=== PATIENT | male | born 1955 | race Caucasian/White ===

== ENCOUNTER 2019-08-09 15:39 | Emergency (ER) | payer OTHER ==
[~2019-08-09] VITALS: Ht 177.8 cm; Wt 79.4 kg
[2019-08-09 16:37] LABS: BASO # 0.1 10*3/uL (0.0-0.1); EOS # 0.4 10*3/uL (0.0-0.4); EOS % 4.8 % (1.0-4.0); HEMATOCRIT 40.5 % (42.0-52.0); LYMPH % 25.7 % (27.0-41.0); MEAN CORPUSCULAR HGB 31.1 pg (27.0-31.0); MEAN CORPUSCULAR HGB CONC 33.8 g/dl (33.0-37.0); MEAN PLATELET VOLUME 9.1 fl (9.6-12.3); MONO # 0.7 10*3/uL (0.1-1.0); MONO % 8.6 % (3.0-9.0); NEUT # 4.7 10*3/uL (2.3-7.9); NEUT % 59.8 % (47.0-73.0); PLATELET COUNT AUTOMATED 207 10*3/uL (130-400); RED CELL DISTRI WIDTH 12.8 % (0-14.5); WHITE BLOOD COUNT 7.9 10*3/uL (4.8-10.8)
[2019-08-09 16:51] LABS: ALBUMIN 3.6 gm/dl (3.1-4.5); ALKALINE PHOSPHATASE 70 U/L (45-117); BUN 19 mg/dl (7-24); CHLORIDE 113 mmol/L (98-107); POTASSIUM 3.8 mmol/L (3.5-5.1); SGOT/AST 22 IU/L (3-35); SGPT/ALT 31 U/L (12-78); SODIUM 142 mmol/L (136-145); TOTAL PROTEIN 6.9 gm/dL (6.4-8.2)
== END 2019-08-09 18:10 | disposition home or self-care (01) ==
LOC: ED 15:39
PROVIDERS: Emergency Medicine
DX: R20.0 Anesthesia of skin (principal)

== ENCOUNTER 2019-11-13 14:13 | Inpatient (IN) | payer MEDICARE ==
[~2019-11-13] VITALS: Ht 177.8 cm; Wt 84.0 kg
[2019-11-13 14:17] VITALS: BP 130/81
[2019-11-13 15:20] LABS: BASO % 0.3 % (0.0-1.0); EOS % 0.2 % (1.0-4.0); HEMATOCRIT 42.2 % (42.0-52.0); LYMPH # 0.6 10*3/uL (1.3-4.4); LYMPH % 4.7 % (27.0-41.0); MEAN CELL VOLUME 93.4 fl (80.0-94.0); MEAN CORPUSCULAR HGB 31.4 pg (27.0-31.0); MEAN CORPUSCULAR HGB CONC 33.6 g/dl (33.0-37.0); MEAN PLATELET VOLUME 8.7 fl (9.6-12.3); MONO # 0.8 10*3/uL (0.1-1.0); NEUT # 11.7 10*3/uL (2.3-7.9); PLATELET COUNT AUTOMATED 165 10*3/uL (130-400); RED BLOOD COUNT 4.52 10*6/uL (4.50-5.90); RED CELL DISTRI WIDTH 12.7 % (0-14.5); WHITE BLOOD COUNT 13.3 10*3/uL (4.8-10.8)
[2019-11-13 15:34] LABS: BUN 18 mg/dl (7-24); CHLORIDE 110 mmol/L (98-107); CREATININE 1.28 mg/dL (0.70-1.30); POTASSIUM 3.6 mmol/L (3.5-5.1); SODIUM 140 mmol/L (136-145)
[2019-11-13 17:35] VITALS: BP 128/82
[2019-11-13] MEDS ORDERED: FLOMAX0.4 MG PO (18:13)
[2019-11-13] MEDS ORDERED: ASPIRIN CHEWABL81 MG PO (18:14)
[2019-11-13] MEDS ORDERED: B12 ACTIVE1000 MCG PO (18:15)
[2019-11-13] MEDS ORDERED: FISH OIL 1,0001 EAC4 PO (18:15)
[2019-11-13] MEDS ORDERED: FINASTERIDE5 M1 PO (18:16)
[2019-11-13] MEDS ORDERED: EFFEXOR XR150 M1 PO (18:17)
[2019-11-13] MEDS ORDERED: CRESTOR10 M1 PO (18:18)
[2019-11-13 20:00] VITALS: BP 153/88
[2019-11-14 00:09] VITALS: BP 123/86
[2019-11-14 06:31] LABS: BASO # 0.1 10*3/uL (0.0-0.1); BASO % 0.4 % (0.0-1.0); EOS % 0.4 % (1.0-4.0); HEMATOCRIT 41.7 % (42.0-52.0); LYMPH # 1.1 10*3/uL (1.3-4.4); MEAN CELL VOLUME 92.9 fl (80.0-94.0); MEAN CORPUSCULAR HGB CONC 33.3 g/dl (33.0-37.0); MEAN PLATELET VOLUME 9.4 fl (9.6-12.3); MONO # 0.9 10*3/uL (0.1-1.0); MONO % 7.8 % (3.0-9.0); NEUT # 9.3 10*3/uL (2.3-7.9); NEUT % 81.1 % (47.0-73.0); PLATELET COUNT AUTOMATED 155 10*3/uL (130-400); RED BLOOD COUNT 4.49 10*6/uL (4.50-5.90); RED CELL DISTRI WIDTH 12.8 % (0-14.5); WHITE BLOOD COUNT 11.4 10*3/uL (4.8-10.8)
[2019-11-14 06:58] LABS: ALBUMIN 3.5 gm/dl (3.1-4.5); BUN 24 mg/dl (7-24); CHLORIDE 112 mmol/L (98-107); POTASSIUM 3.8 mmol/L (3.5-5.1); SGOT/AST 28 IU/L (3-35); SODIUM 142 mmol/L (136-145)
[2019-11-14 07:04] LABS: ALKALINE PHOSPHATASE 54 U/L (45-117); CHOLESTEROL 122 mg/dL (<200); CREATININE 1.25 mg/dL (0.70-1.30); HDL CHOLESTEROL 41 mg/dl (40-60); LDL CHOLESTEROL 67 mg/dL (9-159); SGPT/ALT 39 U/L (12-78); THYROID STIM HORMONE (HS) 0.904 uIU/ml (0.358-4.75); TOTAL PROTEIN 6.9 gm/dL (6.4-8.2); TRIGLYCERIDES 68 mg/dl (<150); VLDL CHOLESTEROL 14 mg/dL (6-40)
[2019-11-14 07:13] LABS: INTERNATIONAL NORM RATIO 1.1 (2.0-3.5)
[2019-11-14 08:00] VITALS: BP 122/77
[2019-11-14 12:00] VITALS: BP 123/80
[2019-11-14 16:00] VITALS: BP 133/92
[2019-11-14 20:00] VITALS: BP 148/92
[2019-11-15] VITALS: BP 138/94
[2019-11-15 08:00] VITALS: BP 132/90
[2019-11-15 12:00] VITALS: BP 120/71
[2019-11-15 16:00] VITALS: BP 138/82
[2019-11-15 20:00] VITALS: BP 135/89
[2019-11-16] VITALS: BP 119/73
[2019-11-16 08:00] VITALS: BP 132/90
[2019-11-16] MEDS ORDERED: VITAMIN D350 MC2 PO (11:33)
[2019-11-16] MEDS ORDERED: PERCOCET 5-3251 EACH PO (11:34)
[2019-11-16 12:00] VITALS: BP 112/70
[2019-11-16 16:00] VITALS: BP 110/68
== END 2019-11-16 19:38 | disposition home or self-care (01) | DRG 563 ==
LOC: ED 14:13 → EDHOLD 16:54 → 5E 16:54
PROVIDERS: Emergency Medicine; Student in an Organized Health Care Education/Training Program; ADMIT Family Medicine; ATTEND Family Medicine
DX: S42.212A Unspecified displaced fracture of surgical neck of left humerus, initial encounter for closed fracture (principal); S32.2XXA Fracture of coccyx, initial encounter for closed fracture; G91.9 Hydrocephalus, unspecified; F32.9 Major depressive disorder, single episode, unspecified; E87.8 Other disorders of electrolyte and fluid balance, not elsewhere classified; D72.829 Elevated white blood cell count, unspecified; E53.8 Deficiency of other specified B group vitamins; E78.5 Hyperlipidemia, unspecified; E66.3 Overweight; F41.9 Anxiety disorder, unspecified; D64.9 Anemia, unspecified; E83.41 Hypermagnesemia; W11.XXXA Fall on and from ladder, initial encounter; Z20.828 Contact with and (suspected) exposure to other viral communicable diseases; Z68.26 Body mass index [BMI] 26.0-26.9, adult; Z82.49 Family history of ischemic heart disease and other diseases of the circulatory system; Y93.89 Activity, other specified; Y92.89 Other specified places as the place of occurrence of the external cause; Y99.8 Other external cause status

== ENCOUNTER 2020-11-18 18:40 | Emergency (ER) | payer OTHER ==
[~2020-11-18] VITALS: Ht 177.8 cm; Wt 82.8 kg
[~2020-11-18 18:40] MED LIST: ASPIRIN CHEWABL81 MG PO; B12 ACTIVE1000 MCG PO; CRESTOR10 M1 PO; EFFEXOR XR150 M1 PO; FINASTERIDE5 M1 PO; FISH OIL 1,0001 EAC4 PO; FLOMAX0.4 MG PO; PERCOCET 5-3251 EACH PO; VITAMIN D350 MC2 PO
[2020-11-18 21:30] LABS: BASO # 0.1 10*3/uL (0.0-0.1); BASO % 0.8 % (0.0-1.0); EOS % 0.1 % (1.0-4.0); LYMPH # 0.7 10*3/uL (1.3-4.4); LYMPH % 8.8 % (27.0-41.0); MEAN CELL VOLUME 92.2 fl (80.0-94.0); MEAN CORPUSCULAR HGB 30.8 pg (27.0-31.0); MEAN CORPUSCULAR HGB CONC 33.4 g/dl (33.0-37.0); MEAN PLATELET VOLUME 8.8 fl (9.6-12.3); MONO # 0.8 10*3/uL (0.1-1.0); MONO % 10.1 % (3.0-9.0); NEUT # 6.2 10*3/uL (2.3-7.9); NEUT % 79.8 % (47.0-73.0); PLATELET COUNT AUTOMATED 165 10*3/uL (130-400); RED BLOOD COUNT 4.77 10*6/uL (4.50-5.90); RED CELL DISTRI WIDTH 12.8 % (0-14.5); WHITE BLOOD COUNT 7.7 10*3/uL (4.8-10.8)
[2020-11-18 21:41] LABS: ACT PARTIAL THROMBO TIME 26.2 SECONDS (20.0-32.1); INTERNATIONAL NORM RATIO 1.1 (2.0-3.5)
[2020-11-18 21:47] LABS: ALBUMIN 3.6 gm/dl (3.1-4.5); ALKALINE PHOSPHATASE 59 U/L (45-117); BUN 13 mg/dl (7-24); CHLORIDE 109 mmol/L (98-107); CREATININE 1.45 mg/dL (0.70-1.30); LIPASE 130 U/L (73-393); POTASSIUM 3.7 mmol/L (3.5-5.1); SGOT/AST 27 IU/L (3-35); SGPT/ALT 24 U/L (12-78); SODIUM 139 mmol/L (136-145); TOTAL PROTEIN 7.3 gm/dL (6.4-8.2)
[2020-11-18 21:48] LABS: TROPONIN I < 0.015 ng/ml (<0.045)
== END 2020-11-19 01:19 | disposition home or self-care (01) ==
LOC: ED 18:40
PROVIDERS: Physician Assistant
DX: R53.1 Weakness (principal); Z79.899 Other long term (current) drug therapy; Z79.82 Long term (current) use of aspirin